=== PATIENT | female | born 1980 | race Asian ===

== ENCOUNTER 2017-09-28 12:08 | Emergency (ER) | payer OTHER ==
[~2017-09-28] VITALS: Ht 152.4 cm; Wt 49.9 kg
[2017-09-28 12:17] VITALS: BP 125/79
[2017-09-28] MEDS ORDERED: POLY10DR EACHEYE (12:19)
--- NOTE | 2017-09-28 12:19 | PHYS DOC ---
Adult General Chief Complaint Chief Complaint: EYE PROBLEMS HPI HPI Patient is a 36 year old female presents to the emergency department with complaints of right eye redness with discharge for 4 days. She states she has no known eye injury, no blurred vision, no double vision, no loss of vision Review of Systems Review of Systems Constitutional: Denies fever or chills [] Eyes: Right eye with redness and discharge, denies visual change or photophobia HENT: Denies nasal congestion or sore throat [] Respiratory: Denies cough or shortness of breath [] Cardiovascular: No additional information not addressed in HPI [] All other systems were reviewed and found to be within normal limits, except as documented in this note. Physical Exam Physical Exam Constitutional: Well developed, well nourished, no acute distress, non-toxic appearance. [] Eyes: Right sclera was subconjunctival hemorrhage. The conjunctivae beefy red. Her young discharge medial canthus. Funduscopic exam is benign. EOMs intact without pain. EKG EKG [] Radiology/Procedures Radiology/Procedures [] Course & Med Decision Making Course & Med Decision Making Pertinent Labs and Imaging studies reviewed. (See chart for details) [] Dragon Disclaimer Dragon Disclaimer This electronic medical record was generated, in whole or in part, using a voice recognition dictation system. Departure Departure Impression: Primary Impression: Conjunctivitis Disposition: 01 HOME, SELF-CARE Condition: STABLE Referrals: NON,STAFF (PCP) [facility], Patient Instructions: Bacterial Conjunctivitis Scripts Polymyxin B Sulf/Trimethoprim (POLYTRIM EYE DROPS) 10 Ml Drops 1 DROP EACHEYE Q4HWA for 7 Days, #10 ML Prov: SAGE ROD APRN 09/28/17 Problem Qualifiers Primary Impression: Conjunctivitis Conjunctivitis type: acute Acute conjunctivitis type: unspecified Laterality: right Qualified Codes: H10.31 - Unspecified acute conjunctivitis , right eye SAGE ROD APRN Sep 28, 2017 12:19
== END 2017-09-28 12:30 | disposition home or self-care (01) ==
LOC: ER 12:08
DX: H10.31 Unspecified acute conjunctivitis, right eye (principal)
CPT/HCPCS: 99283